=== PATIENT | female | born 1965 | race Caucasian/White ===

== ENCOUNTER 2017-07-02 19:38 | Emergency (ER) | payer SELFPAY ==
[~2017-07-02] VITALS: Ht 160 cm; Wt 90.7 kg
--- NOTE | 2017-07-02 20:42 | ED CPR ---
HPI-CPR General Chief Complaint: Code Blue Stated Complaint: CODE Source of Information: Patient, Spouse (Arpit) Exam Limitations: Physical Impairments (cardiopulmonary arrest) History of Present Illness Date Seen by Provider: Jul 02, 2017 Time Seen by Provider: 19:38 Initial Comments Patient presents to ER by EMS with a chief complaint that she was at [facility] witnessed arrest after eating a large meal. She has a hemodialysis catheter in her left upper extremity but is not on dialysis yet. She has diabetes and hypertension as well as CHF. She and her are going up to the upper row seat and when her walking up the stairs she became short of breath too short of breath he continues I started walking back down and then she passed out and collapsed in front of her . EMS was summoned to the scene where they found the patient to be in PEA and CPR was given. Patient was brought to the ER a interosseous access in her right tibia was placed by EMS. There is no definitive airway and the patient was having vomitus at the oropharynx when she came through being given high quality CPR. Review of Systems Constitutional: see HPI (patient had collapsed from cardiopulmonary arrest and was unable to give any meaningful review of systems. remarks the patient has not been sick lately but neither was just totally unexpected.) Physical Exam Vital Signs Capillary Refill : General Appearance: Obese, Severe Distress HEENT: Other (pupils were 3 mm bilateral fixed nonreactive to light. Oropharynx was filled with vomitus) Respiratory: Rales, Respiratory Distress (severe, acute cardiopulmonary arrest) Cardiovascular: Other (trace pedal edema and an cardiopulmonary arrest.) Gastrointestinal: Abnormal Bowel Sounds (absent), Distended Extremity: Slow Capillary Refill Neurologic/Psychiatric: Other (GCS of 3) Skin: Cyanosis (perioral), Pallor Critical Care Note Critical Care Start Time: 19:38 Stop Time: 20:16 Total Time (minutes) 38 Date of : Jul 02, 2017 Time of : 20:16 Progress Please see nursing notes for exact times and doses. Patient came in being coded with no definitive airway. She was having copious amounts of emesis welling up from her mouth and her abdomen was quite distended after [id number] ventilation. Used 3 different suction catheters and continued to clog up the suction tubing so we resorted to finger sweeping to clear the oral airway and then using a video assisted laryngoscope multiple attempts were made at passing an ET tube. The first time and it up in the esophagus. On my second attempt we called for a bougie but just as the bougie was being handed off were able to visualize cords and visualized the ET tube with stylette passing through the cords utilizing adequate cricoid pressure. The patient was without adequate ventilation due to her emesis for approximately 15 minutes. Capnography was putting out about 40-50. Patient was receiving epinephrine and on pulse checks showing pulseless electrical activity. We discussed with family that given its been almost an hour of CPR emesis and likely a massive aspiration of gastric contents as well as long period without adequate ventilation did a meaningful neurologic recovery was becoming exceptionally unlikely. After discussing this at length the agreed and decided that he would prefer not to continue resuscitative efforts. We discontinued CPR and allowed the patient to naturally. Departure Impression Impression: Primary Impression: Cardiopulmonary arrest Disposition: 20 Condition: Departure-Patient Inst. Referrals: UNKNOWN (PCP/Family) Primary Care Physician CESAR GALINDO Jul 02, 2017 20:42
[2017-07-02] MEDS ORDERED: SODIUM BICARB 8.4% 50 MEQ/50 ML (ABBOTT) SYR ONE (23:55)
[2017-07-02] MEDS ORDERED: EPINEPHrine INJECTION 1 MG/ML AMP ONE (23:55)
[2017-07-02 23:59] VITALS: BP 0/0
[2017-07-03] MEDS ORDERED: NS IV 1000 ML 1,000 ML ONE (07:07)
== END 2017-07-02 23:59 | disposition expired ==
LOC: EDBD 19:39 → ER 19:39
DX: I46.9 Cardiac arrest, cause unspecified (principal)
CPT/HCPCS: 31500; 93041; 96360